=== PATIENT | female | born 2000 | race Caucasian/White ===

== ENCOUNTER 2022-03-17 10:31 | Outpatient (CLI) | payer OTHER | END 2022-03-17 12:08 | disposition home or self-care (01) | LOC: GENOP 10:31 | DX: O99.891 Other specified diseases and conditions complicating pregnancy (principal); N89.8 Other specified noninflammatory disorders of vagina; Z3A.30 30 weeks gestation of pregnancy | CPT/HCPCS: 81001; 84112; G0463 ==

== ENCOUNTER 2022-04-12 07:50 | Outpatient (CLI) | payer OTHER | END 2022-04-12 09:10 | disposition home or self-care (01) | LOC: GENOP 07:50 | DX: O47.03 False labor before 37 completed weeks of gestation, third trimester (principal); Z3A.34 34 weeks gestation of pregnancy | CPT/HCPCS: 81001; G0463 ==